=== PATIENT | female | born 1980 | race African-American/Black ===

== ENCOUNTER 2022-03-10 06:48 | Emergency (ER) | payer OTHER ==
[~2022-03-10] VITALS: Ht 162.6 cm; Wt 94.6 kg
[2022-03-10 07:36] LABS: Basophils # (auto) 0.1 10 ^3/uL (0-0.2); Eosinophils # (auto) 0.2 10 ^3/uL (0-0.8); Monocytes # (auto) 0.4 10 ^3/uL (0-1.3); White Blood Cell 5.6 10^3/uL (4.4-10.8)
[2022-03-10 07:39] LABS: Basophils % (auto) 1.7 % (0.0-2.0); Eosinophils % (auto) 3.8 % (0.0-7.0); Hematocrit 23.9 % (36.0-46.0); Hemoglobin 7.5 g/dL (12.2-16.2); Lymphocytes # (auto) 1.2 10 ^3/uL (0.4-5.4); Lymphocytes % (auto) 21.6 % (10.0-50.0); Mean Corpuscular Hemoglobin 24.4 pg (28.0-32.0); Mean Corpuscular Hgb Conc. 31.6 g/dL (32.0-36.0); Mean Corpuscular Volume 77.3 fL (80.0-100.0); Monocytes % (auto) 7.6 % (0.0-12.0); Neutrophils # (auto) 3.6 10 ^3/uL (1.6-8.6); Neutrophils % (auto) 65.3 % (37.0-80.0); Nucleated Red Blood Cells % 0.1 %; Red Blood Cells 3.09 10^6/uL (4.0-5.20); Red Cell Distribution Width 17.5 % (11.8-14.3)
[2022-03-10 08:03] LABS: Albumin 3.4 g/dL (3.4-5.0); Calcium 8.5 mg/dL (8.5-10.1); Potassium 4.3 mmol/L (3.5-5.1)
[2022-03-10 08:07] LABS: BUN/Creatinine Ratio 10.2; Bilirubin, Total 0.2 mg/dL (0.2-1.0); Total Protein 7.2 g/dL (6.4-8.2)
[2022-03-10 09:11] LABS: Urine Bacteria NONE SEEN /hpf (None Seen); Urine Blood 3+ /uL (Negative); Urine Specific Gravity 1.016 (1.001-1.035); Urine WBC 11 /hpf (0 - 5)
[2022-03-10 10:30] VITALS: BP 113/79
== END 2022-03-10 11:13 | disposition home or self-care (01) ==
LOC: ER 06:48
DX: N93.9 Abnormal uterine and vaginal bleeding, unspecified (principal); I12.0 Hypertensive chronic kidney disease with stage 5 chronic kidney disease or end stage renal disease; N18.6 End stage renal disease; Z86.2 Personal history of diseases of the blood and blood-forming organs and certain disorders involving the immune mechanism
CPT/HCPCS: 36415; 80053; 81001; 81025; 85025

== ENCOUNTER 2022-10-28 08:27 | Emergency (ER) | payer BC, OTHER ==
[~2022-10-28] VITALS: Ht 165.1 cm; Wt 96.2 kg
[2022-10-28] MEDS ORDERED: BENZ1LOZ3 MT (11:11)
[2022-10-28] MEDS ORDERED: IBUP600T28 PO (11:11)
[2022-10-28] MEDS ORDERED: PENI500T2 PO (11:11)
[2022-10-28] MEDS ORDERED: PRED20TA2 PO (11:11)
[2022-10-28] MEDS ORDERED: LIDOCAINE 1% HCL (LOCAL ANESTH.) INJ 20ML MDV ID ONE (11:15)
[2022-10-28] MEDS ORDERED: DexAMETHasone SOD PHOS 10MG/1ML VIAL INJ IM ONE (11:15)
[2022-10-28] MEDS ORDERED: cefTRIAXone SOD 1,000 MG VL IM ONE (11:15)
[2022-10-28 12:14] VITALS: BP 176/88
== END 2022-10-28 11:41 | disposition home or self-care (01) ==
LOC: ER 08:27
DX: J03.90 Acute tonsillitis, unspecified (principal); I12.0 Hypertensive chronic kidney disease with stage 5 chronic kidney disease or end stage renal disease; N18.6 End stage renal disease; Z79.899 Other long term (current) drug therapy
CPT/HCPCS: 87070; 87880; 96372; 99284; J0696; J1100; J2001

== ENCOUNTER 2023-08-21 19:40 | Emergency (ER) | payer BC, OTHER ==
[~2023-08-21] VITALS: Ht 165.1 cm; Wt 100.9 kg
[~2023-08-21 19:40] MED LIST: BENZ1LOZ12 MT; IBUP1TAB5 PO; PENI500T2 PO; PRED20TA2 PO
[2023-08-21 20:32] VITALS: BP 199/99; PULSE 69; RESP 18; O2SAT 100
== END 2023-08-22 22:37 | disposition left against medical advice (07) ==
LOC: ER 19:40
DX: I10 Essential (primary) hypertension (principal); Z53.21 Procedure and treatment not carried out due to patient leaving prior to being seen by health care provider